=== PATIENT | male | born 1950 | race Two or more races ===

== ENCOUNTER 2018-10-02 09:24 | Day surgery (SDC) | payer MEDICARE, BC ==
[2018-10-02] VITALS (10 sets, daily range): BP systolic 117–150; BP diastolic 71–82
[~2018-10-02] VITALS: Ht 167.6 cm; Wt 81.6 kg
--- NOTE | 2018-10-02 09:09 | Pre-Procedure Note/Attestation ---
Pre-Procedure Note/Attestation Complete Prior to Procedure Planned Procedure: left Procedure Narrative: Removal of pterygium and placement of conjunctival autograft, left eye Indications for Procedure Pre-Operative Diagnosis: Progressive growth of pterygium, left eye Attestation I attest that I discussed the nature of the procedure; its benefits; risks and complications; and alternatives (and the risks and benefits of such alternatives ), prior to the procedure, with the patient (or the patient's legal branch customer service representative). I attest that, if there was a reasonable possibility of needing a blood transfusion, the patient (or the patient's legal branch customer service representative) was given the [facility] standardized written summary, pursuant to the [place]ises [place]ong Blood Safety Act ([place] Health and Safety Code # 1645, as amended). I attest that I re-evaluated the patient just prior to the surgery and that there has been no change in the patient's H&P, except as documented below: Angel Luis Dallas MD Oct 02, 2018 09:09
[~2018-10-02 09:24] MED LIST: AMLODIPINE BESY10 MG ORAL; Pred Forte 1% Opth Susp 1ml LEFT EYE ONE
--- NOTE | 2018-10-02 09:50 | Anethesia Preoperative Eval ---
Anesthesia Pre-op PMH/ROS General Date of Evaluation: Oct 02, 2018 Anesthesiologist: Karolina Maher CRNA ASA Score: ASA 2 Mallampati Score Class I : Soft palate, uvula, fauces, pillars visible Class II: Soft palate, uvula, fauces visible Class III: Soft palate, base of uvula visible Class IV: Only hard plate visible Mallampati Classification: Class II Surgeon: Burt Diagnosis: LEFT eye pterygium Surgical Procedure: Excision of LEFT eye pterygium Anesthesia History: none Family History: no anesthesia problems Allergies: Coded Allergies: No Known Allergies (Unverified , 10/02/18) Medications: see eMAR Patient NPO?: Yes NPO Date: Oct 02, 2018 NPO Time: 00:00 Past Medical History Cardiovascular: Reports: HTN; Denies: CAD, ND, valve dz, arrhythmia, other Pulmonary: Denies: asthma, COPD, CARLOS, other Gastrointestinal/Genitourinary: Denies: GERD, CRI, ESRD, other Neurologic/Psychiatric: Denies: dementia, CVA, depression/anxiety, TIA, other Endocrine: Denies: DM, hypothyroidism, steroids, other HEENT: Denies: cataract (L), cataract (R), glaucoma, [place] (L), [place] (R), other Hematology/Immune: Denies: anemia, DVT, bleeding disorder, other Musculoskeletal/Integumentary: Denies: OA, RA, DJD, DDD, edema, other PMH Narrative: as above PSxH Narrative: Lap vanda and RIGHT knee arthroscopy Anesthesia Pre-op Phys. Exam Physician Exam Constitutional: NAD Neurologic: CN 2-12 intact Cardiovascular: RRR Respiratory: CTA Gastrointestinal: S/NT/ND Airway Exam Mallampati Score: Class II MO: full Neck: no limitations TMD: 3 FB ROM: full Teeth: intact Dentures: no upper, no lower Anesthesia Pre-op A/P Labs see chart, reviewed WNL Studies Pre-op Studies: EKG - NSR, CXR - No acute CPD Risk Assessment & Plan Assessment: ASA 2; ok to proceed Plan: GA possible MAC Status Change Before Surgery: No Pre-Antibiotics Drug: Karolina Watt CRNA Oct 02, 2018 09:50
[2018-10-02] MEDS: Akten 3.5% 1ml Btl LEFT EYE SCH ×3 (09:52→10:07)
[2018-10-02] MEDS: Tobradex Opth Susp 2.5ml LEFT EYE SCH ×3 (09:52→10:06)
[2018-10-02] MEDS: Vigamox Opth Soln 3ml LEFT EYE SCH ×3 (09:53→10:06)
[2018-10-02] MEDS ORDERED: fentaNYL 100 mcg/2 mL IV ONE (10:03)
[2018-10-02] MEDS ORDERED: Midazolam 2mg/2ml Inj ONE (10:03)
[2018-10-02] MEDS ORDERED: Propofol 200mg/20ml IV ONE (10:04)
[2018-10-02] MEDS ORDERED: Pred Forte 1% Opth Susp 1ml ONE (10:16)
[2018-10-02] MEDS ORDERED: Lidocaine 1% MPF 10mg/ml 5ml ONE (10:16)
[2018-10-02] MEDS ORDERED: Maxitrol Opth Oint 3.5gm ONE (10:16)
[2018-10-02] MEDS ORDERED: Tetracaine 0.5% Opth 4ml Soln ONE (10:17)
[2018-10-02] MEDS ORDERED: Maxitrol Opth Susp 5ml ONE (10:17)
[2018-10-02] MEDS ORDERED: BSS 15ml BTL ONE (10:17)
[2018-10-02] MEDS ORDERED: Bupivacaine 0.75% 30ml vial INJ ONE (10:22)
[2018-10-02] MEDS ORDERED: Lidocaine 2% MPF 5ml Vial INJ ONE (10:22)
[2018-10-02] MEDS ORDERED: Lidocaine 2% 20mg/ml/Epi 0.005mg/ml 20ml vial ONE (10:22)
[2018-10-02] MEDS ORDERED: Hydromorphone 0.5mg/0.5ml inj IVP PRN (11:00)
[2018-10-02] MEDS ORDERED: Povidone-Iodine 5% opth solution ONE (11:38)
[2018-10-02] MEDS ORDERED: LR 1000ml ONE (12:00)
[2018-10-02] MEDS ORDERED: Sterile Water Irrig 1000ml IRRIG ONE (12:00)
[2018-10-02] MEDS ORDERED: NS Irrig 1000ml ONE (12:00)
[2018-10-02] MEDS ORDERED: Dexamethasone 4mg/ml vial ONE (12:39)
--- NOTE | 2018-10-02 13:17 | Immediate Post-Op Evaluation ---
Immediate Post-Op Evalulation Immediate Post-Op Evalulation Procedure: LEFT eye pterygium excison with conjunctival autograft Date of Evaluation: Oct 02, 2018 Time of Evaluation: 13:08 IV Fluids: LR 600 ml Estimated Blood Loss: 0 Blood Pressure Systolic: 140 Blood Pressure Diastolic: 79 Pulse Rate: 68 Respiratory Rate: 20 O2 Sat by Pulse Oximetry: 96 Temperature (Fahrenheit): 97.2 Pain Score (1-10): 0 Nausea: No Vomiting: No Complications none Patient Status: awake, reacts, patent Hydration Status: adequate Given Within 1 Hr of Incision: Karolina Josue CRNA Oct 02, 2018 13:17
--- NOTE | 2018-10-02 13:18 | Brief Operative Note ---
Immediate Post Operative Note Operative Note Pre-op Diagnosis: Progressive growth of pterygium, left eye Procedure: Removal of pterygium and placement of Conjunctival autograft, OS Post-op Diagnosis: same as pre-op Surgeon: Manuel Dallas MD MS Senior Relationship Manager: none Anesthesiologist: Karolina Maher CRNA Anesthesia: local, MAC Specimen: none Complications: none Fluids: see chart Implant(s) used?: No Angel Luis Dallas MD Oct 02, 2018 13:18
--- NOTE | 2018-10-02 13:18 | 48 Hour Post Anesthesia Eval ---
Post Anesthesia Evaluation Procedure: LEFT eye pterygium excison with conjunctival autograft Date of Evaluation: Oct 02, 2018 Time of Evaluation: 13:17 Blood Pressure Systolic: 121 0: 73 Pulse Rate: 63 Respiratory Rate: 16 Temperature (Fahrenheit): 97.2 O2 Sat by Pulse Oximetry: 97 Airway: patent Nausea: No Vomiting: No Pain Intensity: 0 Hydration Status: adequate Cardiopulmonary Status: stable Mental Status/LOC: patient returned to baseline Follow-up Care/Observations: per opthamology Post-Anesthesia Complications: none Follow-up care needed: ready to discharge Karolina Maehr CRNA Oct 02, 2018 13:18
--- NOTE | 2018-10-02 13:18 | Discharge Instructions ---
Discharge Instructions Discharge Instructions Follow Up Orders Leave patch and shield in place Followup tomorrow in Dr Dallas's office at 12:00 For Congestive Heart Failure Reminder Report to your physician any weight gain of 5 pounds or more in one week. Angel Luis Dallas MD Oct 02, 2018 13:18
--- NOTE | 2018-10-03 15:45 | Operative Note - Dictated ---
DATE OF OPERATION: 10/02/2018 SURGEON: Angel Luis Dallas M.D. ATTENDING ANESTHESIOLOGIST SURGEON: None. ANESTHESIOLOGIST: Karolina Maher CRNA. PREOPERATIVE DIAGNOSES: 1. Progressive pterygium, left eye. 2. Status post LASIK, left eye. POSTOPERATIVE DIAGNOSES: 1. Progressive pterygium, left eye. 2. Status post LASIK, left eye. PROCEDURE: 1. Removal of pterygium, left eye. 2. Placement of conjunctival autograft, left eye. SPECIMENS: None COMPLICATIONS: None. INDICATIONS FOR SURGERY: The patient has had progressive growth of the pterygium on the left eye that is visual axis. The patient understands the risks of surgery including infection, bleeding, need for further surgery, loss of vision, loss of the eye, recurrence of pterygium, double vision, understands these risks and elects to proceed with surgery. FINDINGS: The patient had the large progressive pterygium nasally in the left eye measuring approximately 3.2 mm horizontally x 5.5 mm vertically. OPERATIVE NOTE: After informed consent was obtained, the patient was brought into the operating room, placed in supine position. Cardiac and respiratory monitors were attached. A time-out was performed and all criteria were met in the room and everyone in the room agreed. The left eye was draped and prepped in sterile manner for ocular surgery. A lid speculum was placed in the eye. A double-armed silk suture was placed through the superior and inferior limbus. The patient was sedated and a retrobulbar block followed by modified [place] block were given using 50:50 mixture of 0.75% Marcaine and 1% lidocaine. The left eye was then draped and prepped in sterile manner for ocular surgery. An eye lid speculum was placed into the eye. Double-arm silk suture was placed through the inferior and superior limbus. The globe was rotated. The edges of the pterygium were marked with the cautery. A 1% lidocaine preservative-free was injected into the tail of the pterygium top and inflated off the sclera. There was no adherence of the pterygium into the sclera. A 0.12 forceps and [place] scissors were used to excise the tail up to the neck of the pterygium. A [place] blade was then used to remove the neck and the head of the pterygium. This was then very gently so as not to disrupt the LASIK flap. The flap did not elevate and was not dehisced at all during the procedure. A corinna bur was used to smooth the limbal edge. Attention was then paid superiorly where a conjunctival autograft was excised according to the measurements of the bed of the previously removed pterygium. The Tisseel glue was then used on the posterior surface of the conjunctival autograft as well as onto the recipient bed and the conjunctiva autograft was placed into the recipient bed and smoothed with a muscle hook. This attached very nicely. A 8-0 Vicryl sutures were placed at each corner of the conjunctival autograft to reappose the autograft to the recipient conjunctiva. Sub-tenon injections of and gentamicin were then given. The double arm suture was removed. The graft appeared in excellent position and very well adhered. Drops of TobraDex were applied to the eye followed by Maxitrol ointment and then two patches and a shield. The patient tolerated the procedure well and left the operating room awake, alert, and in stable condition. Angel Luis Dallas M.D. DR: David JOB#: [id number] CC:
== END 2018-10-02 14:35 | disposition home or self-care (01) ==
LOC: SUR 09:24
DX: H11.002 Unspecified pterygium of left eye (principal); I10 Essential (primary) hypertension; Z90.49 Acquired absence of other specified parts of digestive tract; Z88.8 Allergy status to other drugs, medicaments and biological substances
CPT/HCPCS: 65426; J1100; J2250; J2704; J3010; J3490; 94003; 94150